=== PATIENT | female | born 1960 | race African-American/Black ===

== ENCOUNTER 2018-07-28 13:31 | Inpatient (IN) | payer OTHER ==
[~2018-07-28] VITALS: Ht 167.6 cm; Wt 74.8 kg
[2018-07-28 13:32] VITALS: BP 128/72
[2018-07-28] MEDS ORDERED: ADVIL PM LIQUI1 EACH PO (13:38)
[2018-07-28] MEDS ORDERED: AZITHROMYCIN 2250 MG PO (13:38)
[2018-07-28] MEDS ORDERED: VENTOLIN HFA 1818 GM INH (13:39)
[2018-07-28] MEDS ORDERED: LISINOPRIL-HCT1 EAC2 PO (13:39)
[2018-07-28] MEDS ORDERED: NAPROSYN500 MG PO (13:40)
[2018-07-28] MEDS ORDERED: BIKTARVY 50-201 EACH PO (13:41)
[2018-07-28 14:18] LABS: URINE BILIRUBIN NEGATIVE (Negative); URINE BLOOD 2+ (Negative); URINE CLARITY CLEAR; URINE COLOR YELLOW; URINE GLUCOSE-RANDOM* NEGATIVE (Negative); URINE KETONES NEGATIVE (Negative); URINE LEUKOCYTES NEGATIVE (Negative); URINE NITRITE NEGATIVE (Negative); URINE PROTEIN (DIPSTICK) 1+ (Negative); URINE SPECIFIC GRAVITY 1.025 (1.005-1.035)
[2018-07-28 14:18] LABS: ABSOLUTE NEUTROPHILS 7.1 thou/uL (1.4-8.2); BASOPHILS 0.2 % (0.0-2.0); EOSINOPHILS 0.7 % (0.0-3.0); HEMATOCRIT 37.6 % (37.0-47.0); MCH 32.1 pg (26.0-34.0); MCHC 34.6 g/dL (28.0-37.0); MCV 92.8 fL (80.0-100.0); MONOCYTES 5.7 % (1.0-8.0); PLATELET COUNT 160 thou/uL (150-400); POLYS 80.4 % (36.0-66.0); RBC 4.05 mil/uL (4.20-5.00); RDW 12.9 % (10.5-14.5); WBC 8.8 thou/uL (4.0-11.0)
[2018-07-28 14:37] LABS: BACTERIA 1-9 Few /HPF (None Seen); CASTS None Seen /LPF (None Seen); CRYSTALS None Seen /LPF (None Seen); MUCUS 0-3 Light strn/LPF (None Seen); SQUAMOUS 4-10 Moderate /LPF (0-3); URINE WBC 0-5 Rare /HPF (0-5)
[2018-07-28 14:41] LABS: ALBUMIN 3.3 g/dL (3.4-5.0); ANION GAP 7 mmol/L (7-16); BUN 14 mg/dL (7-18); CALCIUM 9.4 mg/dL (8.5-10.1); CHLORIDE 93 mmol/L (98-107); CO2 33 mmol/L (21-32); CREATININE 0.9 mg/dL (0.6-1.0); GLUCOSE 122 mg/dL (74-106); SGOT 46 U/L (15-37); SGPT 36 U/L (30-65); SODIUM 133 mmol/L (136-145); TOTAL BILIRUBIN 0.7 mg/dL (<0.1-1.0); TOTAL PROTEIN 7.9 g/dL (6.4-8.2); TROPONIN-I <0.06 ng/mL (<0.06)
[2018-07-28 14:44] LABS: POTASSIUM 2.6 mmol/L (3.5-5.1)
[2018-07-28 16:59] VITALS: BP 122/58
[2018-07-28 17:30] VITALS: BP 118/64
[2018-07-28 17:37] VITALS: BP 107/58
--- NOTE | 2018-07-28 18:45 | NUR ---
Patient arrived to room 455 from ED. Awake, oriented to surroundings and circumstances of admission. Several visitors as bedside. C/o sinus pain, headached, indigestion. MD notified, see EMAR for orders. Poor appetite. Denies shortness of breath, room air. Congested cough. Afebrile. Continue to monitor.
[2018-07-28 19:05] VITALS: BP 125/53
[2018-07-29 00:02] VITALS: BP 118/62
[2018-07-29 04:19] VITALS: BP 110/67
[2018-07-29 05:09] LABS: CALCIUM 8.5 mg/dL (8.5-10.1); CREATININE 0.7 mg/dL (0.6-1.0); POTASSIUM 3.2 mmol/L (3.5-5.1)
--- NOTE | 2018-07-29 05:31 | NUR ---
PATIENT IS ALERT AND ORIENTED X4. PATENT WAS ABLE TO GET SOME SLEEP HIS SHIFT. PATIENT IS UP AD CALVIN AND HAS A STEADY GAIT. FLUIDS, ABX AND BREATHING TREATMENT TO BE CONTINUED. PT HAS SOME CONGESTION AND ALLERGY MEDS ARE SCHEDULED. PATIENT IS PROGRESSING TOWARDS DC GOALS.
[2018-07-29 07:22] VITALS: BP 113/70
[2018-07-29 15:02] VITALS: BP 100/46
--- NOTE | 2018-07-29 16:39 | NUR ---
PT DISCHARGED TO SENIOR SUITS, A&OX4, VSS, NO SIGNS OF DISTRESS. PT HAS RECEIVED DOSE OF IV ABX, AND HAD A C/O HEADACHE AND RECEIVED TYLENOL TO MANAGE IT. PT HAD SMALL AMOUNT OF BLOOD IN SPUTUM, C&S ORDERED. PT HAD C/O FUNGUS ON BILAT TOES, CLOTRIMAZOLE ORDERED.
[2018-07-29 16:43] VITALS: BP 130/85
--- NOTE | 2018-07-29 17:34 | NUR ---
RECEIVED PT AROUND 1630, A&0X4, UP AD CALVIN, IVF RUNNING, PT AMB STEADY W/IV POLE, COUGH, GAVE HER A SPECIMEN BOTTLE SHOULD SHE DELIVER, TONIGHT OR TOMORROW, MUCUS FOR INVESTIGATION. ENCOURAGED HER TO USE CALL LIGHT FOR ANY NEEDS
[2018-07-30 08:00] VITALS: BP 121/73
[2018-07-30] MEDS ORDERED: CLOTRIMAZOLE 1%15 G1 TOP (11:54)
[2018-07-30] MEDS ORDERED: CLARITIN10 M2 PO (11:54)
[2018-07-30] MEDS ORDERED: MELATONIN5 M1 PO (11:54)
[2018-07-30] MEDS ORDERED: LEVAQUIN 500 M500 M1 PO (11:54)
[2018-07-30] MEDS ORDERED: TYLENOL EXTRA500 MG PO (11:54)
[2018-07-30] MEDS ORDERED: FLORANEX GRANU1 EACH PO (11:54)
[2018-07-30] MEDS ORDERED: MAG-AL PLUS SUS30 ML PO (11:54)
[2018-07-30] MEDS ORDERED: MUCINEX DM ER1 EAC1 PO (11:54)
[2018-07-30] MEDS ORDERED: K-DUR 20 MEQ T20 MEQ PO (11:54)
[2018-07-30 13:04] VITALS: BP 121/73
--- NOTE | 2018-07-30 14:04 | NUR ---
ASSUMED CARE OF PATIENT AT 0715, PATIENT ALERT AND ORIENTED X 4. PAT UP AD CALVIN. PATIENT DENIES PAIN THIS AM, BUT C/O HEADACHE PRIOR TO DISCHARGE, TYLENOL ES X 2 TABLETS GIVEN. VSS PATIENT HAD LEFT FOREARM IV WITH NS WITH 20 KCL AT 80CC/HR. DR FRANCO HERE THIS AM, PATIENT WILL DISCHARGE TO HOME WITH SELF CARE. IV REMOVED FROM LEFT FOREARM PRIOR TO DISCHARGE. ALL DISCHARGE PAPERWORK AND ALL PERSONAL BELONGINGS SENT WITH THE PATIENT. DAUGHTER HERE TO TRANSPORT PATIENT HOME. VOLUNTEER SERVICE TOOK PATIENT TO THE MAIN LOBBY.
== END 2018-07-30 14:14 | disposition home or self-care (01) | DRG 871 ==
LOC: ER 13:31 → EROBS 17:01 → SICU 17:01 → 4W 17:30 → SICU 07-29 16:35
PROVIDERS: Emergency Medicine; ADMIT Internal Medicine
DX: A41.9 Sepsis, unspecified organism (principal); J18.9 Pneumonia, unspecified organism; I10 Essential (primary) hypertension; Z21 Asymptomatic human immunodeficiency virus [HIV] infection status; E87.6 Hypokalemia; J32.9 Chronic sinusitis, unspecified; Z79.51 Long term (current) use of inhaled steroids; Z79.899 Other long term (current) drug therapy; Z88.8 Allergy status to other drugs, medicaments and biological substances; Z79.2 Long term (current) use of antibiotics
CPT/HCPCS: 10045; 15002

== ENCOUNTER 2020-12-23 15:39 | Emergency (ER) | payer OTHER ==
[~2020-12-23] VITALS: Ht 167.6 cm; Wt 79.4 kg
[~2020-12-23 15:39] MED LIST: ADVIL PM LIQUI1 EACH PO; AZITHROMYCIN 2250 MG PO; BIKTARVY 50-201 EACH PO; CLARITIN10 M2 PO; CLOTRIMAZOLE 1%15 G1 TOP; FLORANEX GRANU1 EACH PO; K-DUR 20 MEQ T20 MEQ PO; LEVAQUIN 500 M500 M1 PO; LISINOPRIL-HCT1 EAC2 PO; MAG-AL PLUS SUS30 ML PO; MELATONIN5 M1 PO; MUCINEX DM ER1 EAC1 PO; NAPROSYN500 MG PO; TYLENOL EXTRA500 MG PO; VENTOLIN HFA 1818 GM INH
[2020-12-23 16:26] LABS: BASOPHILS 0.7 % (0.0-2.0); EOSINOPHILS 1.6 % (0.0-3.0); HEMATOCRIT 39.3 % (37.0-47.0); HEMOGLOBIN 13.4 gm/dL (12.0-15.0); LYMPHOCYTES 30.8 % (24.0-44.0); MCH 32.6 pg (26.0-34.0); MCHC 34.2 g/dL (28.0-37.0); MCV 95.4 fL (80.0-100.0); MONOCYTES 7.1 % (1.0-8.0); PLATELET COUNT 243 thou/uL (150-400); POLYS 59.8 % (36.0-66.0); RBC 4.12 mil/uL (4.20-5.00); RDW 13.2 % (10.5-14.5); WBC 6.6 thou/uL (4.0-11.0)
[2020-12-23 16:52] LABS: POTASSIUM 3.5 mmol/L (3.5-5.1)
[2020-12-23 17:41] LABS: URINE BILIRUBIN NEGATIVE (Negative); URINE BLOOD 1+ (Negative); URINE CLARITY CLEAR; URINE COLOR YELLOW; URINE GLUCOSE-RANDOM* NEGATIVE (Negative); URINE KETONES NEGATIVE (Negative); URINE LEUKOCYTES-REFLEX NEGATIVE (Negative); URINE NITRITE-REFLEX NEGATIVE (Negative); URINE PROTEIN (DIPSTICK) NEGATIVE (Negative)
[2020-12-23 17:48] LABS: BACTERIA-REFLEX 1-9 Few /HPF (None Seen); CASTS None Seen /LPF (None Seen); SQUAMOUS 4-10 Moderate /LPF (0-3); URINE RBC 1-2 Rare /HPF (NONE SEEN); URINE WBC-REFLEX 0-5 Rare /HPF (0-5)
[2020-12-23 17:49] LABS: CRYSTALS None Seen /LPF (None Seen)
[2020-12-23 17:57] VITALS: BP 130/77
--- NOTE | 2020-12-24 08:11 | EKG ---
[place] [address] [facility] [place] [address] ELECTROCARDIOGRAM REPORT Name: HARI ODONNELL Room #: DEP ROBYN Granda#: [id number] Admission: 12/23/20 Attend Phys: Discharge: 12/23/20 Date of : 62 Report #: [id number] [facility] ED Test Date: 2020-12-23 Test Time: 15:53:58 Pat Name: HARI ODONNELL Department: Room: Gender: F Fruit Sorter: MAN[place]OR : 1960 Requested By: Mayo Arreguin Order Number: [id number] MD: Rohan Espinoza Measurements Intervals [place] Rate: 82 P: 51 [place]: 151 QRS: -14 QRSD: 85 T: 1 QT: 374 QTc: 437 Interpretive Statements Sinus rhythm Left ventricular hypertrophy Nonspecific T wave abnormality No previous ECG available for comparison Electronically Signed On 12-24-2020 8:11:15 CDT by Rohan Espinoza [email or web address] <ELECTRONICALLY SIGNED> By: Rohan Espinoza MD, [facility] 12/24/20 0811 1553 1553 Rohan Espinoza MD, FAC /EPI
== END 2020-12-23 17:57 | disposition home or self-care (01) ==
LOC: ER 15:39
PROVIDERS: Nurse Practitioner
DX: R05 Cough (principal); Z20.822 Contact with and (suspected) exposure to COVID-19; R53.83 Other fatigue; M19.90 Unspecified osteoarthritis, unspecified site; I10 Essential (primary) hypertension; Z21 Asymptomatic human immunodeficiency virus [HIV] infection status; Z91.09 Other allergy status, other than to drugs and biological substances; Z85.3 Personal history of malignant neoplasm of breast; Z79.891 Long term (current) use of opiate analgesic; Z79.899 Other long term (current) drug therapy; Z79.1 Long term (current) use of non-steroidal anti-inflammatories (NSAID); Z79.51 Long term (current) use of inhaled steroids; Z88.8 Allergy status to other drugs, medicaments and biological substances